=== PATIENT | male | born 1980 | race Caucasian/White ===

== ENCOUNTER 2024-10-22 08:35 | Day surgery (SDC) | payer MEDICAID, SELFPAY ==
--- NOTE | 2024-10-17 07:25 | EKG_ITS ---
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
[2024-10-17 11:29] VITALS: BMI 31.5
[2024-10-17 12:40] LABS: Basophils % (Auto) 0 % (0-2.5); Eosinophils # (Auto) 0.2 Thou/mm3 (0.0-0.5); Eosinophils % (Auto) 3 % (0-10); Hematocrit 44.7 % (41.0-53.0); Hemoglobin 15.4 g/dL (13.5-16.0); Immature Granulocytes % (Auto) 0 % (0-0); Immature Granulocytes Auto 0.02 Thou/mm3 (0.00-0.00); Lymphocytes # (Auto) 2.4 Thou/mm3 (1.0-4.8); Lymphocytes % (Auto) 34 % (10-50); Mean Corpuscular HGB Conc 34.5 g/dl (31.0-37.0); Mean Corpuscular Hemoglobin 30.1 pg (25.0-35.0); Mean Corpuscular Volume 87 fL (80-100); Monocytes # (Auto) 0.4 Thou/mm3 (0.0-0.8); Monocytes % (Auto) 6 % (0-12); Neutrophils # (Auto) 3.9 Thou/mm3 (1.8-7.7); Neutrophils % (Auto) 56 % (37-80); Nucleated Red Blood Cell % 0 /100 WBC (0); Platelet Count 229 Thou/mm3 (140-440); RDW Standard Deviation 39.8 fL (35.1-43.9); Red Blood Count 5.12 Miln/mm3 (4.50-5.90)
[2024-10-17 12:46] LABS: Alanine Aminotransferase 23 U/L (10-49); Albumin, Serum 4.5 gm/dL (3.5-5.0); Albumin/Globulin Ratio 1.7 (1.2-2.2); Alkaline Phosphatase 72 U/L (46-116); Anion Gap 7 (7-16); Aspartate Amino Transferase 21 U/L (0-34); BUN/Creatinine Ratio 12 Ratio (12-20); Bilirubin,Total 0.6 mg/dL (0.3-1.2); Blood Urea Nitrogen 13 mg/dL (9-23); Calcium 10.2 mg/dL (8.3-10.6); Calcium (Corrected) 10.2 mg/dL (8.5-10.1); Carbon Dioxide 31.4 mMol/L (20.0-31.0); Chloride 104 mMol/L (98-107); Creatinine (Component) 1.1 mg/dL (0.6-1.3); Estimated Creatinine Clearance 106.4 mL/min (>60); Globulin 2.6 gm/dL (2.3-3.5); Glucose 128 mg/dL (74-106); Osmolality,Calculated 285 (275-295); Potassium 3.9 mMol/L (3.4-5.1); Sodium 142 mMol/L (136-145); Total Protein 7.1 gm/dL (5.7-8.2); eGFR > 60 See Note
--- NOTE | 2024-10-21 14:17 | SUR.PREOP ---
Pt notified to come in at 0900 tomorrow for surgery.
[2024-10-22 09:27] VITALS: BP 149/91; PULSE 73; RESP 16; TEMP 36.6; O2SAT 100; BMI 31.9
--- NOTE | 2024-10-22 11:07 | PD.SUROPNT ---
Date of Procedure 10/22/24 Pre Op Diagnosis Right upper quadrant abdominal wall soft tissue mass Right mid abdominal wall soft tissue mass Post Op Diagnosis Right upper quadrant abdominal subfascial soft tissue mass Right mid abdominal subcutaneous soft tissue mass Procedure Excision of subfascial soft tissue mass from right upper quadrant of abdominal wall Excision of subcutaneous soft tissue mass from right mid abdominal wall Findings An approximately 2 cm subcutaneous soft tissue mass of right mid abdomen. 3.5 cm subfascial soft tissue mass of right upper quadrant Procedure Description Patient brought into the operating room and spine position. After administration of monitored anesthesia care, patient's upper abdomen prepped and draped in standard surgical manner. Patient was noted to have multiple soft tissue masses of right upper quadrant and right mid abdomen. The procedure started on the right mid abdominal wall soft tissue mass. After administration of local anesthesia an approximately 2 and half centimeter incision was made and dissection was deepened into soft tissue. Underlying subcutaneous soft tissue mass was identified and circumferentially dissected out surrounding tissue. The mass was approximately 2 cm in diameter. There was removed. Hemostasis achieved using electrocautery. Subcutaneous tissue closed with interrupted sutures using 3-0 Vicryl and incision was closed with 4 Monocryl in subcuticular fashion. Dermabond applied. I then turned my attention to patient's right upper quadrant abdominal wall soft tissue mass. After administration of local anesthesia an approximately 3.5 cm incision was made and dissection was deepened into soft tissue. The mass was palpated and noted to be subfascial. The fascia was opened the underlying mass was circumferentially dissected out surrounding tissue and underlying muscle. The mass was measuring to be approximately 3.5 cm in diameter, lipomatous in nature. The wound was washed and irrigated and hemostasis achieved using electrocautery. Fascia reapproximated with interrupted sutures using 2-0 Vicryl. Subcutaneous tissue closed with interrupted sutures using 3-0 Vicryl and incision was closed with 4-0 Monocryl in subcuticular fashion. Dermabond applied. Patient tolerated procedure well. He was breathing spontaneously and without difficulty and was transferred to postanesthesia care in stable condition. Instruments, needles and sponge counts were reported to be correct x 2. Anesthesia MAC and local Pathology / specimen Other (Right mid abdominal wall soft tissue mass. Right upper quadrant abdominal wall soft tissue mass) Estimated Blood Loss 2 Condition Stable Disposition PACU Surgeon Jessica Angeles MD Surgical Staff Operation Date: 10/22/24 11:15 <No data on this case meets the specified criteria>
[2024-10-22 11:08] VITALS: BP 137/81; PULSE 69; RESP 20; TEMP 36.9; O2SAT 96
--- NOTE | 2024-10-22 11:08 | SUR.PHASEII ---
1104 Patient arrived to recovery, awake and alert, breathing unlabored, vital signs stable, denies pain, dressing intact to abdomen; dermabond, no bleeding noted, denies nausea, report received from Dr. Martinez and Angelique GRANT/Sally GRANT
[2024-10-22 11:13] VITALS: BP 121/84; PULSE 65; RESP 18; O2SAT 95
[2024-10-22 11:18] VITALS: BP 134/85; PULSE 60; RESP 14; O2SAT 95
[2024-10-22 11:23] VITALS: BP 130/84; PULSE 62; RESP 18; O2SAT 97
[2024-10-22 11:38] VITALS: BP 123/93; PULSE 63; RESP 15; TEMP 36.6; O2SAT 97
--- NOTE | 2024-10-22 11:49 | SUR.PHASEII ---
1149 Patient meets discharge criteria from recovery, awake and alert, breathing unlabored, vital signs stable, denies pain, dressing intact; no bleeding noted, drinking water; denies nausea, patient assisted with dressing into his clothing by his , discharge instructions given to patient and patients , signed discharge instructions. Patient given all his belongings prior to discharge, transported via wheelchair and left in a private vehicle.
== END 2024-10-22 11:49 | disposition home or self-care (01) ==
PROVIDERS: Anesthesiology; PCP Family Medicine; Referring Provider Surgery; Visit Provider Surgery
PROC: (CPT 22901; principal; 2024-10-22 11:00)
DX: D17.1 Benign lipomatous neoplasm of skin and subcutaneous tissue of trunk (principal)
CPT/HCPCS: 22901; 36415; 80048; 80053; 85025; 93005; A4217; A4649; J0690; J2250; J2704; J3010; J3490